=== PATIENT | male | born 1955 | race Caucasian/White ===

== ENCOUNTER 2021-05-16 05:50 | Day surgery (SDC) | payer OTHER ==
[~2021-05-16] VITALS: Ht 185.4 cm; Wt 140.9 kg
[~2021-05-16 05:50] MED LIST: ASPIRIN325 MG PO; BELLADONNA-OPIU30 MG PR; CIPRO500 MG PO; DIPHENHYDRAMINE50 M1 PO; ENOXAPARIN150 MG/1 M SUB-Q; FLOMAX0.4 MG PO; FLUTICASONE PRO16 GM NAS; GLUCOPHAGE500 MG PO; HYDROCHLOROTH12.5 M1 PO; LISINOPRIL10 MG PO; LISINOPRIL40 MG PO; MACRODANTIN100 MG PO; METOPROLOL TART50 MG PO; NORCO 5-325 TA1 EACH PO; OMEPRAZOLE20 M1 PO; OXYBUTYNIN CHLOR5 M1 PO; TOPIRAMATE50 MG PO; TOPROL XL100 MG PO; URSO250 MG PO; WARFARIN SODIUM5 MG PO
--- NOTE | 2021-05-16 09:18 | NUR ---
05/16/21 0918 Sheets,Xiomara 0834 PT ARRIVED TO PACU ON 10L VIA MASK, PT WAKES EASILY AND DENIES PAIN AND NAUSEA. PT UNABLE TO MOVE LEGS AND SPINAL LEVEL EDUCATION GIVEN. VSS. 0900 O2 DECREASED TO TO 6L. HOB INCREASED SLIGHTLY. 0902 O2 REMOVED, PT SIPPING WATER PER REQUEST.
--- NOTE | 2021-05-16 09:43 | NUR ---
PT TO FLOOR WITH LUCERO OLSEN. PT AWAKE AND TALKATIVE. NUMB ALL THE WAY DOWN, CAN MOVE FEET BUT CAN'T FEEL THEM. VS STABLE. DRINKING WATER, NO NAUSEA REPORTED.
[2021-05-16] MEDS ORDERED: OXYCODONE HCL5 MG PO (10:08)
[2021-05-16] MEDS ORDERED: OXYBUTYNIN CHLO10 MG PO (10:09)
[2021-05-16] MEDS ORDERED: LEVOFLOXACIN500 MG PO (10:12)
--- NOTE | 2021-05-16 10:55 | OR ---
[facility] [address], [place] [address] Signed DATE OF OPERATION: 05/16/2021 SURGEON: Khadijah Sin MD PREOPERATIVE DIAGNOSES: 1. Bilobar benign prostatic hyperplasia with lower urinary tract symptoms. 2. Reactive overactive bladder. POSTOPERATIVE DIAGNOSES: 1. Bilobar benign prostatic hyperplasia with lower urinary tract symptoms. 2. Reactive overactive bladder. NAMES OF PROCEDURES: Transurethral resection of the prostate. ANESTHESIA: Spinal with sedation. ESTIMATED BLOOD LOSS: 25 mL. COMPLICATIONS: None. DRAINS: A 22-St Lucian three-way Hernández catheter, connected to continuous bladder irrigation. SPECIMENS: Prostate chips sent to the lab for evaluation. INDICATIONS FOR PROCEDURE: Mr. Winkler is a very pleasant 65-year-old gentleman who initially presented to me with urinary urgency, frequency and weak force of stream. He underwent diagnostic cystoscopy which revealed a large obstructing lateral lobe hypertrophy in particular in the left lobe. After discussion of the risks and benefits, he agreed to proceed with resection of the prostate. Approximately two weeks ago, we attempted resection of the prostate; however, his bladder was so severely overactive that we were unable to keep his bladder distended in order to perform the TURP. He has been on oxybutynin 15 mg p.o. daily along with Myrbetriq 25 mg daily for the past two weeks. The plan is also to give him a spinal anesthesia today in an effort to keep his bladder calm during the procedure. Electronically Signed By: KHADIJAH SIN MD 05/16/21 1055 PATIENT NAME: DANIEL WINKLER OPERATIVE REPORT DATE OF : 51 REPORT #: [id number] PHYSICIAN: KHADIJAH SIN MD PCP: DOLORES BULLOCK MD REPORT IS CONFIDENTIAL AND NOT TO BE RELEASED WITHOUT AUTHORIZATION [facility] [address], [place] [address] Signed OPERATIVE FINDINGS: The patient's urethral meatus was dilated from 20-30 today using Bonita sounds without difficulty. Diagnostic ureteroscopy revealed lateral lobe hypertrophy with no evidence of a median lobe. In particular, his left lateral lobe is extremely hypertrophic and is obstructing his bladder outlet. The left lateral lobe of the prostate was resected thoroughly using both bipolar cautery and the bipolar button without incident. At the end of the procedure, a 22-St Lucian three-way Hernández catheter was inserted into the patient's bladder and connected to continuous bladder irrigation. DESCRIPTION OF PROCEDURE: After informed consent was obtained, the patient was taken back to the operating room. He was transferred from the [facility] to the operating room table where spinal anesthesia with sedation was then administered. He was placed in the dorsal lithotomy position and his genitalia prepped and draped in standard sterile fashion. The patient's urethral meatus was then dilated from 20-St Lucian to 30-St Lucian using Bonita sounds. A 30-degree lens was inserted into the patient's bladder using a visual obturator. A diagnostic cystoscopy was then performed and I was able to easily identify the patient's bilateral ureteral orifices. Otherwise, his bladder was unremarkable. I switched the visual obturator out for the resectoscope and focused the majority of my resection on the bladder neck and left lateral lobe of the prostate. Once I had retrieved a satisfactory amount of prostate tissue from the left lateral lobe, I switched to the bipolar button. I continued to resect the tissue down to the capsule on the left side. The anterior bladder neck and the left lateral portion of the bladder neck were also resected. The Jaime syringe was then used to irrigate the bladder of all the prostate chips, which were then placed in a specimen cup to be sent for pathological evaluation. Hemostasis was achieved and maintained throughout the case using bipolar electrocautery. Once I was satisfied with the resection, I removed this resectoscope, leaving the sheath behind. I inserted a 0.035 Sensor wire into the bladder via the sheath. The sheath was then removed fully intact. Over the wire, I passed a 22-St Lucian three-way Hernández catheter into the patient's bladder and connected to continuous bladder irrigation. The patient tolerated the procedure well without any complication. He will now be transferred to the postanesthesia care unit in stable condition. DISPOSITION: The patient will remain in [facility] overnight so that his continuous bladder irrigation can be slowly weaned off. He has requested that his Hernández catheter be removed prior to his discharge and I told him today that I would consider that option. If his Hernández catheter is removed tomorrow before discharge, he will return this Sunday for a Electronically Signed By: KHADIJAH SIN MD 05/16/21 1055 PATIENT NAME: DANIEL WINKLER OPERATIVE REPORT DATE OF : 51 REPORT #: [id number] PHYSICIAN: KHADIJAH SIN MD PCP: DOLORES BULLOCK MD REPORT IS CONFIDENTIAL AND NOT TO BE RELEASED WITHOUT AUTHORIZATION [address] [address] Signed bladder scan and a urine check. If his catheter is not removed, he will return this Sunday the to undergo a voiding trial. He was sent home today with Levaquin 500 mg p.o. daily for a total of 7 days along with oxycodone 5 dispensed #15 as needed for pain. He was also given additional oxybutynin 10 mg p.o. daily for management of his reactive overactive bladder. MD DAYRON Ivey/PIO /[id number] Copies: ~ Electronically Signed By: KHADIJAH SIN MD 05/16/21 1055 PATIENT NAME: DANILE WINKLER OPERATIVE REPORT DATE OF : 51 REPORT #: [id number] PHYSICIAN: KHADIJAH SIN MD PCP: DOLORES BULLOCK MD REPORT IS CONFIDENTIAL AND NOT TO BE RELEASED WITHOUT AUTHORIZATION
--- NOTE | 2021-05-16 11:37 | NUR ---
PT WING DRAINING LIGHT PINK QS URINE. PT DENIES PAIN AND IS ABLE TO FEEL LEGS UP TO THIGHS NOW. ORDERED LUNCH, NO NAUSEA REPORTED. CALL LIGHT IN REACH.. VS STABLE.
--- NOTE | 2021-05-16 18:04 | NUR ---
SPOKE WITH DR SIN REGARDING PT AND S\S FOR INSULIN. SHE STATED THAT SHE WOULD WANT HIM TO GET INSULIN FOR ANYTHING OVER 200 REGULAR SCALE. . WILL PUT IN RN NOTIFY.
--- NOTE | 2021-05-16 18:07 | NUR ---
RN wants to emty the lainez specifically herself. Vitals and other I&Os are complete other than the lainez.
--- NOTE | 2021-05-16 19:15 | NUR ---
BEDSIDE REPORT RECEIVED FROM OFFGOING RNSWATI. PT RESTING IN BED AWAKE, PARTICIPATES IN REPORT. DENIES NEEDS. CALL LIGHT IN REACH.
--- NOTE | 2021-05-16 21:48 | NUR ---
PT ASSESSMENT COMPLETE. PT DENIES PAIN, NAUSEA, OR SOB. PT WITH CPAP IN PLACE, SAO2 93%. CPOX AT BEDSIDE. URINE DARK PINK TO RED IN COLOR. CBI INCREASED FROM OCCASIONAL DRIP TO SLOW DRIP. WILL CONTINUE TO MONITOR URINE COLOR. ICF INFUSING ORDERED, IV FLUSHED, WNL, PATENT. PT DENIES NUMBNESS OR TINGLING. CMS INTACT TO BLE. PT TALKATIVE AND IN GOOD SPIRITS. DENIES FURTHER NEEDS AT THIS TIME. CALL LIGHT EDUCATION PROVIDED. PT STATES UNDERSTANING. CALL LIGHT IN REACH.
--- NOTE | 2021-05-17 00:32 | NUR ---
PT ROUNDING. PT RESTING IN BED AWAKE. HE STATES HE HAS BEEN ABLE TO SLEEP AN HOUR OR SO AT A TIME. URINE IN CATHETER TUBING NOTED TO BE DOOR TO DOOR SELLING AGENT IN COLOR THAN PREVIOUS. CBI SLOWED TO OCCASIONAL DRIP. PT DENIES NEEDS AT THIS TIME. CALL LIGHT IN REACH.
--- NOTE | 2021-05-17 02:15 | NUR ---
PT ASSESSMENT COMPLETE. PT RESTING IN BED WITH CPAP IN PLACE APPROPRIATELY. PT STATES HE HAS SLEPT OFF AND ON, CURRENTLY TEXT MESSAGING WITH FRIEND PER PT. PT STATES PAIN IS WELL CONTROLLED. DENIES NAUSEA OR SOB. WING CATH DRAINING YELLOW TO LIGHT PINK URINE IN CATH TUBING. CBI SLOWED. IV FLUSHED, WNL, PATENT, BRISK BLOOD RETURN NOTED. VS OBTAINED, WNL. PT DENIES FURTHER NEEDS AT THIS TIME. CALL LIGHT IN REACH.
--- NOTE | 2021-05-17 05:26 | NUR ---
VS OBTAINED. WNL. URINE IN CATH TUBING DARK RED, NO CLOTS NOTED. CBI INCREASED SLIGHTLY. PT DENIES NEEDS AT THIS TIME. CALL LIGHT IN REACH.
--- NOTE | 2021-05-17 09:27 | NUR ---
PT AWAKE IN BED AND CHATTING. CALL LIGHT WITHIN REACH. NO FURTHER NEEDS AT THIS TIME.
--- NOTE | 2021-05-17 09:30 | NUR ---
REPORT RECEIVED FROM NIGHT RN AND PT. CARE RESUMED. PT. IS ALERT AND ORIENTED. WING PATENT AND DRAINING DARK PINK URINE. CBI INCREASED. PT. DENIES PAIN. IV SITE WNL AND IVF INFUSING. ON RA AND O2 SAT. IS 93%. DISCUSSED POC, MEDS AND DC PLAN. PT. LEFT RESTING WITH CALL LIGHT IN REACH.
--- NOTE | 2021-05-17 10:15 | NUR ---
Pt states he lives alone, has close neighbors and his friend Shreyas will drive him home and check on him. Pt denies any needs. States he has 100 pounds with gastric bypass. Will fu with Dr. Vega on
[2021-05-17] MEDS ORDERED: METFORMIN HCL500 MG PO (10:16)
--- NOTE | 2021-05-17 10:19 | NUR ---
MED REC COMPLETED BY PHARMACY
--- NOTE | 2021-05-17 11:02 | NUR ---
CALL TO VLADIMIR ROBLES FOR PATIENT TO DISCHARGE HOME, URINE IS WATERMELON PINK AND THIS IS FINE PER DR. SIN. PATIENT IS COMFORTABLE GOING HOME WITH WING CATHETER AND WILL HAVE A FOLLOW UP TOMORROW WITH UROLOGY NURSE FOR VOIDING TRIAL. CBI IS CAPPED AT THIS TIME, PATIENT SALINE LOCKED AND UP TO CHAIR. PATIENT TOLERATED ACTIVITY WELL, DENIES PAIN AT THIS TIME. PLAN TO REVIEW EMPTYING WING WITH PATIENT.
--- NOTE | 2021-05-17 11:31 | NUR ---
PT. UP IN THE CHAIR AND WING DRAINING PINK CLEAR URINE. DISCUSSED DC AND PT. CALLING RIDE.
[2021-05-17] MEDS ORDERED: DITROPAN XL10 MG PO (11:32)
[2021-05-17] MEDS ORDERED: LEVOFLOXACIN500 MG PO (11:34)
--- NOTE | 2021-05-17 12:03 | NUR ---
ALL DISCHARGE INSTRUCTIONS REVIEWED AND QUESTIONS ANSWERED. PT. DENIES PAIN. WING PATENT AND DRAINING LIGHT PINK URINE. PT. EDUCATED ON WING CARE AND S/SX TO REPORT TO MD. PT. LEFT VIA WHEELCHAIR AND ALL BELONGINGS AND LEAD WELDER.
--- NOTE | 2021-05-17 13:35 | NUR ---
CONNECTED WITH PT LENARD MAC WAS GETTING READY TO TAKE HIM TO VEHICLE IN . PT STATED HE WAS FEELING GOOD, AND WAS VERY PLEASED WITH HIS CARE WILL AT [facility]. GAVE ENCOURAGEMENT AND BLESSING
--- NOTE | 2021-05-17 15:10 | PATH ---
[facility] [address], [place] [address] Signed SPECIMEN(S): A PROSTATE CHIPS SPECIMEN SOURCE: A. PROSTATE CHIPS CLINICAL HISTORY: Benign hyperplasia of prostate. Transurethral resection of prostate. 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 BRP:cml:C2NR MICROSCOPIC EXAMINATION: Histologic sections of all submitted blocks are examined by light microscopy. These findings, together with the gross examination, support the pathologic diagnosis. GROSS DESCRIPTION: The specimen, labeled "RD, prostate chips," is received in formalin and consists of irregular shaped, pink-guido, rubbery tissue fragments that aggregate measure 4.5 x 3.2 x 0.6 cm. The specimen weighs 4 grams. Specimen is entirely submitted in cassettes (A1-A3). JS (under the direct supervision of a pathologist) The Gross Description was prepared using a voice recognition system. The report was reviewed for accuracy; however, sound-alike word errors, addition and/or deletions may occur. If there is any question about this report, please contact Client Services. PERFORMING LABORATORY: The technical component was performed by [facility] [employer], [address] [place] [id number] (Log Chipper: Val Abraham MD; CLIA# [id number]). Professional interpretation was performed by [facility], [facility], [address] [place] [address] (CLIA# [id number]). Diagnostician: Mervin Donis MD Pathologist Electronically Signed 05/17/2021 PATIENT NAME: DANIEL QUINTERO PATHOLOGY DATE OF : 51 REPORT #: [id number] PHYSICIAN: MARIE PATHOLOGY PCP: DOLORES BULLOCK MD REPORT IS CONFIDENTIAL AND NOT TO BE RELEASED WITHOUT AUTHORIZATION [address] [address] Signed Copies: ~ PATIENT NAME: DANIEL QUINTERO PATHOLOGY DATE OF : 51 REPORT #: [id number] PHYSICIAN: MARIE PATHOLOGY PCP: DOLORES BULLOCK MD REPORT IS CONFIDENTIAL AND NOT TO BE RELEASED WITHOUT AUTHORIZATION
== END 2021-05-17 12:00 | disposition home or self-care (01) ==
LOC: DS 05:50 → MS 09:45 → DS 05-17 12:00
PROVIDERS: ATTEND Urology
PROC: 0VT08ZZ Resection of Prostate, Via Natural or Artificial Opening Endoscopic (ICD-10-PCS; principal; 2021-05-16 06:45)
DX: N40.1 Benign prostatic hyperplasia with lower urinary tract symptoms (principal); R39.15 Urgency of urination; R39.12 Poor urinary stream; R35.0 Frequency of micturition; R33.8 Other retention of urine; N32.81 Overactive bladder; E66.2 Morbid (severe) obesity with alveolar hypoventilation; Z68.42 Body mass index [BMI] 45.0-49.9, adult; I10 Essential (primary) hypertension; I48.19 Other persistent atrial fibrillation; E11.9 Type 2 diabetes mellitus without complications; Z86.711 Personal history of pulmonary embolism; Z79.01 Long term (current) use of anticoagulants; Z79.84 Long term (current) use of oral hypoglycemic drugs; G47.33 Obstructive sleep apnea (adult) (pediatric); K21.9 Gastro-esophageal reflux disease without esophagitis
CPT/HCPCS: 00914; 94762; C1769; J0690; J0696; J1100; J1720; J1885; J2001; J2250; J2370; J2405; J2704; J2765; J3010; J7030; J7121